=== PATIENT | female | born 1990 | race American Indian/Alaskan Native ===

== ENCOUNTER 2021-08-01 21:15 | Emergency (ER) | payer MEDICAID, OTHER ==
--- NOTE | 2021-08-01 21:57 | EDM.PDOC ---
ED HPI GENERAL MEDICAL PROBLEM - General Chief Complaint: Abdominal Pain Stated Complaint: abdominal pain Time Seen by Provider: 08/01/21 21:29 Source of Information: Reports: Patient History Limitations: Reports: No Limitations - History of Present Illness INITIAL COMMENTS - FREE TEXT/NARRATIVE: Incarcerated female with Two days of left lower quad abdominal pain. Pain is sharp and constant. Worse with movement. Reports dysparunia before arrest. No vaginal discharge. LMP just prior to incarceration about one week ago. Denies fever or chills. No history of abdominal surgery. Abdomen Pain Score (Numeric/FACES): 10 - Related Data Allergies Allergy/AdvReac Type Severity Reaction Status Date / Time No Known Allergies Allergy Verified 08/01/21 21:41 Home Meds: Home Meds NK [No Known Home Meds] 08/01/21 [History] Past Medical History - Past Health History Medical/Surgical History: Denies Medical/Surgical History Social & Family History - Tobacco Use Tobacco Use Status *Q: Current Every Day Tobacco User Years of Tobacco use: 20 Packs/Tins Daily: 0.5 - Caffeine Use Caffeine Use: Reports: Soda - Recreational Drug Use Recreational Drug Use: Yes Drug Use in Last 12 Months: Yes Recreational Drug Type: Reports: Fentanyl Recreational Drug Use Frequency: Daily ED ROS GENERAL - Review of Systems Review Of Systems: See Below GI/Abdominal: Reports: Abdominal Pain. Denies: Constipation, Diarrhea, Nausea, Vomiting : Reports: No Symptoms. Denies: Discharge, Dysuria, Flank Pain Musculoskeletal: Denies: Back Pain Skin: Reports: No Symptoms ED EXAM, GI/ABD - Physical Exam Exam: See Below Exam Limited By: No Limitations General Appearance: Alert, WD/WN, Moderate Distress Ears: Normal External Exam Nose: Normal Inspection Throat/Mouth: Normal Inspection Head: Normocephalic Neck: Normal Inspection, Full Range of Motion. No: Lymphadenopathy (R), Lymphadenopathy (L) Respiratory/Chest: No Respiratory Distress, Lungs Clear, Normal Breath Sounds Cardiovascular: Regular Rate, Rhythm, No Edema, No Murmur GI/Abdominal Exam: Normal Bowel Sounds, Soft, Other (generalized abdominal pain without guarding or rigidity. No masses. ) Course - Vital Signs Text/Narrative:: The patient was evaluated. VSS Exam= tender LLQ CBC and U/A are normal. Urine HCG is negative. The patient escaped from the room and ran down the nava and steps without significant difficulty. She was apprehended and brought back to the room. Her general appearance is good. She is discharged from the ER to the care of law enforcement. Return to the ED as needed. Last Recorded V/S: Last Vital Signs Temp 36.6 C 08/01/21 21:40 Pulse 76 08/01/21 21:40 Resp 16 08/01/21 21:40 BP 126/82 08/01/21 21:40 Pulse Ox 100 08/01/21 21:40 - Orders/Labs/Meds Orders: Active Orders 24 hr Category Date Time Status CRP [C-REACTIVE PROTEIN] [CHEM] Stat Lab 08/01/21 22:09 Received Labs: Laboratory Tests 08/01/21 08/01/21 08/01/21 Range/Units 22:09 22:09 22:09 WBC 12.5 H (4.5-11.0) K/uL RBC 4.85 (3.30-5.50) M/uL Hgb 14.0 (12.0-15.0) g/dL Hct 42.8 (36.0-48.0) % MCV 88 (80-98) fL MCH 29 (27-31) pg MCHC 33 (32-36) % Plt Count 463 H (150-400) K/uL Neut % (Auto) 66.8 H (36-66) % Lymph % (Auto) 22.4 L (24-44) % [place] % (Auto) 10.0 H (2-6) % Eos % (Auto) 0.6 L (2-4) % Baso % (Auto) 0.2 (0-1) % Urine Color Yellow (YELLOW) Urine Appearance Cloudy A (CLEAR) Urine pH 7.0 (5.0-8.0) Ur Specific [place] 1.020 (1.008-1.030) Urine Protein 30 H (NEGATIVE) mg/dL Urine Glucose (UA) Negative (NEGATIVE) mg/dL Urine Ketones Negative (NEGATIVE) mg/dL Urine Occult Blood Negative (NEGATIVE) Urine Nitrite Negative (NEGATIVE) Urine Bilirubin Negative (NEGATIVE) Urine Urobilinogen 1.0 (0.2-1.0) EU/dL Ur Leukocyte Esterase Trace H (NEGATIVE) Urine RBC 0-5 (0-5) Urine WBC 5-10 H (0-5) Ur Epithelial Cells Many Amorphous Sediment Few Urine Bacteria Moderate Urine Mucus Moderate Urine HCG, Qual Negative Departure - Departure Time of Disposition: 22:38 Disposition: [facility] Condition: Good Clinical Impression: Abdominal pain - Discharge Information Instructions: Abdominal Pain, Adult, [id number] Referrals: PCP,None [Primary Care Provider] - Forms: ED Department Discharge Sepsis Event Note (ED) - Evaluation Sepsis Screening Result: No Definite Risk - Focused Exam Vital Signs: Vital Signs Temp Pulse Resp BP Pulse Ox 08/01/21 21:40 36.6 C 76 16 126/82 100 08/01/21 21:35 36.6 C 76 16 126/82 100 - My Orders Last 24 Hours: My Active Orders 08/01/21 22:09 CRP [C-REACTIVE PROTEIN] [CHEM] Stat - Assessment/Plan Last 24 Hours: My Active Orders 08/01/21 22:09 CRP [C-REACTIVE PROTEIN] [CHEM] Stat
== END 2021-08-01 22:45 | disposition designated cancer center or children's hospital (05) ==
LOC: JP.ED 21:15
DX: R10.32 Left lower quadrant pain (principal); Z72.0 Tobacco use
CPT/HCPCS: 36415; 81001; 81025; 85025; 86140; 99284